=== PATIENT | female | born 1945 | race Caucasian/White ===

== ENCOUNTER 2018-02-02 11:58 | Inpatient (IN) ==
[2018-02-02] MEDS ORDERED: ONDANSETRON 4 MG/2 ML VIAL IV PRN (12:28)
[2018-02-02] MEDS ORDERED: LACTULOSE 20 GM/30 ML UDCUP PO PRN (12:28)
[2018-02-02] MEDS ORDERED: METOPROLOL TARTRATE 25 MG TABLET PO ONE (12:40)
[2018-02-02] MEDS: ALBUTEROL/IPRATROPIUM 3 ML NEB RESP TX SCH ×2 (13:58→19:18)
[2018-02-02 14:17] LABS: Eosinophils % 0.3 % (0.00-10.9); Hematocrit 18.5 VOL% (35.7-47.0); Immature Granulocytes % 0.3 %; Immature Granulocytes Absolute 0.01 #; Lymphocytes # 0.8 10*3/uL (1.4-4.0); Lymphocytes % 27.4 % (21.3-54.2); Mean Corpuscular HGB Conc 31.9 GM/DL (32-36); Mean Corpuscular Hemoglobin 27 PG (27-34); Mean Platelet Volume 12.3 FL (9.6-12.0); Monocytes # 0.3 10*3/uL (0.11-0.8); Monocytes % 8.7 % (1.7-12.7); Neutrophils # 1.8 10*3/uL (1.4-7.4); Neutrophils % 63.3 % (38.7-73.9); Red Blood Count 2.23 MC/CUMM (3.8-5.5); Red Cell Distribution Width 15.9 % (9.3-17.3); White Blood Count 2.9 T/CUMM (4-12)
[2018-02-02 14:20] LABS: Platelet Count 71 T/CUMM (130-400)
[2018-02-02 14:23] LABS: Hemoglobin 5.9 GM/DL (12.0-16.0)
[2018-02-02 14:40] LABS: Albumin 2.9 G/DL (3.4-5.0); Bilirubin,Total 1.4 MG/DL (0.2-1.0); Calcium 8.3 MG/DL (8.5-10.1); Osmolality,Calculated 280.2 MOS/KG (273-304); Total Protein 5.4 G/DL (6.4-8.3)
[2018-02-02 14:43] LABS: Potassium 2.3 MMOL/L (3.5-5.1)
[2018-02-02 14:47] LABS: Hypochromasia 1+; Microcytosis Slight; Platelet Estimate Decreased
[2018-02-02] MEDS ORDERED: SODIUM CHLORIDE 0.9% 1,000 ML IV PRN (16:22)
[2018-02-02] MEDS: DEXTROSE 5% NACL 0.45% 1,000 ML IV SCH (18:08)
[2018-02-02] MEDS ORDERED: POTASSIUM CHLORIDE 20 MEQ PACK PO ONE ×2 (20:36→22:30)
[2018-02-02] MEDS: DOCUSATE SODIUM 100 MG CAPSULE PO SCH (20:54)
[2018-02-02] MEDS: BUDESONIDE/FORMOTEROL 160-4.5 INHALER 6 GM INH SCH (20:54)
[2018-02-02] MEDS: MONTELUKAST 10 MG TABLET PO SCH (20:54)
[2018-02-03] MEDS ORDERED: POTASSIUM CHLORIDE 20 MEQ PACK PO ONE (00:30)
[2018-02-03] MEDS: ALBUTEROL/IPRATROPIUM 3 ML NEB RESP TX SCH ×4 (00:33→19:12)
[2018-02-03 04:33] LABS: Basophils % 0.3 % (0.0-0.8); Hematocrit 21.3 VOL% (35.7-47.0); Hemoglobin 7.1 GM/DL (12.0-16.0); Immature Granulocytes % 0.7 %; Immature Granulocytes Absolute 0.02 #; Lymphocytes # 0.7 10*3/uL (1.4-4.0); Lymphocytes % 22.6 % (21.3-54.2); Mean Corpuscular HGB Conc 33.3 GM/DL (32-36); Mean Corpuscular Hemoglobin 28 PG (27-34); Mean Corpuscular Volume 83.9 FL (87-102); Mean Platelet Volume 12.4 FL (9.6-12.0); Monocytes # 0.3 10*3/uL (0.11-0.8); Monocytes % 8.2 % (1.7-12.7); Neutrophils # 2.1 10*3/uL (1.4-7.4); Neutrophils % 67.2 % (38.7-73.9); Red Blood Count 2.54 MC/CUMM (3.8-5.5); Red Cell Distribution Width 15.2 % (9.3-17.3); White Blood Count 3.1 T/CUMM (4-12)
[2018-02-03] MEDS ORDERED: POTASSIUM CHLORIDE 20 MEQ TABLET PO PRN (04:35)
[2018-02-03 04:40] LABS: Platelet Count 69 T/CUMM (130-400)
[2018-02-03 05:02] LABS: Albumin 2.8 G/DL (3.4-5.0); Bilirubin,Total 2.2 MG/DL (0.2-1.0); Calcium 7.8 MG/DL (8.5-10.1); Osmolality,Calculated 281.2 MOS/KG (273-304); Potassium 2.8 MMOL/L (3.5-5.1); Total Protein 4.9 G/DL (6.4-8.3)
[2018-02-03] MEDS ORDERED: POTASSIUM CHLORIDE RIDER 10 MEQ in PREMIX 1 EACH IV PRN (05:12)
[2018-02-03 05:19] LABS: Hypochromasia 1+; Ovalocytes Slight; Platelet Estimate Decreased
[2018-02-03 05:20] LABS: Microcytosis Slight
[2018-02-03] MEDS: POTASSIUM CHLORIDE RIDER 20 MEQ in PREMIX 1 EACH IV PRN ×2 (05:22→10:51)
[2018-02-03] MEDS ORDERED: Deferasirox [Jadenu] 360 MG PO SCH (09:00)
[2018-02-03] MEDS ORDERED: SILDENAFIL CITRATE 25 MG PO SCH (09:00)
[2018-02-03] MEDS ORDERED: AMBRISENTAN 5 MG PO SCH (09:00)
[2018-02-03] MEDS: DEXT 5% NACL 0.45% KCL 40 MEQ 40 MEQ/1,000 ML BAG IV SCH (13:21)
[2018-02-03] MEDS: PANTOPRAZOLE 40 MG TABLET PO SCH (16:27)
[2018-02-03] MEDS: BUDESONIDE/FORMOTEROL 160-4.5 INHALER 6 GM INH SCH ×2 (16:27→20:14)
[2018-02-03] MEDS: DOCUSATE SODIUM 100 MG CAPSULE PO SCH ×2 (16:27→20:13)
[2018-02-03] MEDS: POLYETHYLENE GLYCOL POWDER 17 GM PACK PO SCH ×2 (16:27→20:13)
[2018-02-03] MEDS: MONTELUKAST 10 MG TABLET PO SCH (20:13)
[2018-02-03] MEDS: HYDROCORTISONE 2.5% RECTAL CREAM 30 GM TUBE TOP PRN (20:14)
[2018-02-04] MEDS: ALBUTEROL/IPRATROPIUM 3 ML NEB RESP TX SCH ×4 (00:13→19:11)
[2018-02-04 00:53] LABS: RBC,Peritoneal Fluid 120 T/CUMM
[2018-02-04 04:22] LABS: Neutrophils,Peritoneal Fluid 15 %
[2018-02-04 05:26] LABS: Albumin 2.5 G/DL (3.4-5.0); Bilirubin,Total 1.5 MG/DL (0.2-1.0); Calcium 7.6 MG/DL (8.5-10.1); Osmolality,Calculated 284.8 MOS/KG (273-304); Potassium 3.5 MMOL/L (3.5-5.1); Total Protein 4.7 G/DL (6.4-8.3)
[2018-02-04] MEDS: DOCUSATE SODIUM 100 MG CAPSULE PO SCH (09:05)
[2018-02-04] MEDS: PANTOPRAZOLE 40 MG TABLET PO SCH (09:05)
[2018-02-04] MEDS: POLYETHYLENE GLYCOL POWDER 17 GM PACK PO SCH ×2 (09:06→20:28)
[2018-02-04] MEDS: HYDROCORTISONE 2.5% RECTAL CREAM 30 GM TUBE TOP PRN (09:08)
[2018-02-04] MEDS: BUDESONIDE/FORMOTEROL 160-4.5 INHALER 6 GM INH SCH ×2 (09:09→20:28)
[2018-02-04] MEDS ORDERED: BISACODYL 10 MG SUPP RECTAL PRN (09:56)
[2018-02-04] MEDS ORDERED: HYDROCORTISONE 25 MG SUPP RECTAL PRN (09:56)
[2018-02-04] MEDS: DEXT 5% NACL 0.45% KCL 40 MEQ 40 MEQ/1,000 ML BAG IV SCH (10:25)
[2018-02-04] MEDS: POTASSIUM CHLORIDE 20 MEQ TABLET PO SCH (10:34)
[2018-02-04] MEDS: FUROSEMIDE 40 MG/4 ML VIAL IV SCH (10:35)
[2018-02-04 14:31] LABS: Apearance,Urine CLEAR (Clear); Bilirubin,Urine Negative (Negative); Blood, Urine Negative (Negative); Glucose,Urine (UA) Negative (Negative); Ketones,Urine Negative (Negative); Mucus,Urine Occasional /LPF (Occasional); Nitrite,Urine Negative (Negative); Protein,Urine Negative; Squamous Epithelial Cell,Urine Occasional /HPF (0-10); Urine Color Yellow (Yellow); Urine Specific Gravity 1.006 (1.001-1.035); Urine Urobilinogen < 2.0 EU/DL (0.2-1.0)
[2018-02-04] MEDS: SPIRONOLACTONE 50 MG TABLET PO SCH (18:13)
[2018-02-04] MEDS: MONTELUKAST 10 MG TABLET PO SCH (20:28)
[2018-02-04 21:30] LABS: Basophils % 0.3 % (0.0-0.8); Eosinophils # 0.1 10*3/uL (0.0-0.87); Eosinophils % 1.4 % (0.00-10.9); Hematocrit 22.6 VOL% (35.7-47.0); Hemoglobin 7.3 GM/DL (12.0-16.0); Immature Granulocytes % 1.1 %; Immature Granulocytes Absolute 0.04 #; Lymphocytes # 0.7 10*3/uL (1.4-4.0); Lymphocytes % 18.4 % (21.3-54.2); Mean Corpuscular HGB Conc 32.3 GM/DL (32-36); Mean Corpuscular Hemoglobin 28 PG (27-34); Mean Corpuscular Volume 87.3 FL (87-102); Mean Platelet Volume 12.2 FL (9.6-12.0); Monocytes # 0.3 10*3/uL (0.11-0.8); Monocytes % 7.7 % (1.7-12.7); Neutrophils # 2.6 10*3/uL (1.4-7.4); Neutrophils % 71.1 % (38.7-73.9); Platelet Count 61 T/CUMM (130-400); Red Blood Count 2.59 MC/CUMM (3.8-5.5); White Blood Count 3.6 T/CUMM (4-12)
[2018-02-04 22:08] LABS: Anisocytosis Slight; Platelet Estimate Decreased
[2018-02-04 22:09] LABS: Macrocytosis Slight; Spherocytes 1+
[2018-02-04 22:12] LABS: Stomatocytes Few
[2018-02-05] MEDS: ALBUTEROL/IPRATROPIUM 3 ML NEB RESP TX SCH ×4 (00:16→19:43)
[2018-02-05] MEDS: SPIRONOLACTONE 50 MG TABLET PO SCH (08:39)
[2018-02-05] MEDS: PANTOPRAZOLE 40 MG TABLET PO SCH (08:40)
[2018-02-05] MEDS: POTASSIUM CHLORIDE 20 MEQ TABLET PO SCH (08:40)
[2018-02-05] MEDS: FUROSEMIDE 40 MG/4 ML VIAL IV SCH (08:40)
[2018-02-05] MEDS: BUDESONIDE/FORMOTEROL 160-4.5 INHALER 6 GM INH SCH ×2 (08:40→20:14)
[2018-02-05] MEDS: POLYETHYLENE GLYCOL POWDER 17 GM PACK PO SCH ×2 (08:40→20:12)
[2018-02-05] MEDS: FAMOTIDINE 20 MG TABLET PO SCH ×2 (11:12→20:13)
[2018-02-05] MEDS: MONTELUKAST 10 MG TABLET PO SCH (20:13)
[2018-02-05] MEDS: DEXTROSE 5% NACL 0.45% 1,000 ML IV SCH (20:15)
[2018-02-06] MEDS: ALBUTEROL/IPRATROPIUM 3 ML NEB RESP TX SCH ×4 (02:03→19:59)
[2018-02-06] MEDS: FAMOTIDINE 20 MG TABLET PO SCH ×2 (08:22→21:09)
[2018-02-06] MEDS: FUROSEMIDE 40 MG/4 ML VIAL IV SCH (08:22)
[2018-02-06] MEDS: POTASSIUM CHLORIDE 20 MEQ TABLET PO SCH (08:22)
[2018-02-06] MEDS: SPIRONOLACTONE 50 MG TABLET PO SCH (08:22)
[2018-02-06] MEDS: POLYETHYLENE GLYCOL POWDER 17 GM PACK PO SCH ×2 (08:23→21:07)
[2018-02-06] MEDS: BUDESONIDE/FORMOTEROL 160-4.5 INHALER 6 GM INH SCH ×2 (08:23→21:10)
[2018-02-06] MEDS ORDERED: BISACODYL 10 MG SUPP RECTAL ONE (09:00)
[2018-02-06] MEDS: MONTELUKAST 10 MG TABLET PO SCH (21:09)
[2018-02-07] MEDS: ALBUTEROL/IPRATROPIUM 3 ML NEB RESP TX SCH ×3 (00:14→12:14)
[2018-02-07 05:10] LABS: Eosinophils # 0.1 10*3/uL (0.0-0.87); Eosinophils % 2.1 % (0.00-10.9); Hematocrit 21.8 VOL% (35.7-47.0); Hemoglobin 6.7 GM/DL (12.0-16.0); Immature Granulocytes % 0.7 %; Immature Granulocytes Absolute 0.02 #; Lymphocytes # 0.7 10*3/uL (1.4-4.0); Lymphocytes % 24.2 % (21.3-54.2); Mean Corpuscular HGB Conc 30.7 GM/DL (32-36); Mean Corpuscular Hemoglobin 28 PG (27-34); Mean Corpuscular Volume 90.8 FL (87-102); Mean Platelet Volume 12.1 FL (9.6-12.0); Monocytes # 0.2 10*3/uL (0.11-0.8); Monocytes % 7.6 % (1.7-12.7); Neutrophils # 1.9 10*3/uL (1.4-7.4); Neutrophils % 65.4 % (38.7-73.9); Platelet Count 70 T/CUMM (130-400); Red Cell Distribution Width 16.4 % (9.3-17.3); White Blood Count 2.9 T/CUMM (4-12)
[2018-02-07 05:36] LABS: Calcium 8.5 MG/DL (8.5-10.1); Potassium 4.4 MMOL/L (3.5-5.1)
[2018-02-07 05:47] LABS: Eosinophils 1 % (0-10); Lymphocytes 28 % (20-55); Platelet Estimate Decreased; Segmented Neutrophils 68 % (50-85); Total Cells Counted 100
[2018-02-07 05:48] LABS: Hypochromasia 1+; Microcytosis Slight
[2018-02-07] MEDS: POTASSIUM CHLORIDE 20 MEQ TABLET PO SCH (08:59)
[2018-02-07] MEDS: FAMOTIDINE 20 MG TABLET PO SCH (08:59)
[2018-02-07] MEDS: SPIRONOLACTONE 50 MG TABLET PO SCH (08:59)
[2018-02-07] MEDS: POLYETHYLENE GLYCOL POWDER 17 GM PACK PO SCH (08:59)
[2018-02-07] MEDS: FUROSEMIDE 40 MG/4 ML VIAL IV SCH (09:00)
[2018-02-07] MEDS ORDERED: FUROSEMIDE 40 MG TABLET PO SCH (09:30)
[2018-02-07] MEDS: BUDESONIDE/FORMOTEROL 160-4.5 INHALER 6 GM INH SCH (09:45)
[2018-02-07 14:02] VITALS: BP 101/68
== END 2018-02-07 14:10 | disposition home or self-care (01) | DRG 394 ==
LOC: N.2W 12:42 → N.4E 17:06
PROVIDERS: ADMIT Internal Medicine Pulmonary Disease; ATTEND Internal Medicine Pulmonary Disease